=== PATIENT | female | born 1975 | race Caucasian/White ===

== ENCOUNTER → 2018-06-21 | Outpatient (CLI) | payer BC ==
[2005-08-27 07:47] VITALS: PULSE 94; TEMP 98.4
== END ==
LOC: MC.RAD 08:00
DX: Z12.31 Encounter for screening mammogram for malignant neoplasm of breast (principal)

== ENCOUNTER → 2019-08-29 | Outpatient (CLI) | payer BC ==
[2005-08-27 07:47] VITALS: PULSE 94; TEMP 98.4
== END ==
LOC: MC.RAD 07:20
DX: Z12.31 Encounter for screening mammogram for malignant neoplasm of breast (principal)

== ENCOUNTER → 2019-09-03 | Outpatient (CLI) | payer BC ==
[2005-08-27 07:47] VITALS: PULSE 94; TEMP 98.4
== END ==
LOC: MC.RAD 13:25
DX: R92.2 Inconclusive mammogram (principal)

== ENCOUNTER → 2020-09-04 | Outpatient (CLI) | payer BC ==
[2005-08-27 07:47] VITALS: PULSE 94; TEMP 98.4
== END ==
LOC: MC.RAD 07:37
DX: Z12.31 Encounter for screening mammogram for malignant neoplasm of breast (principal)

== ENCOUNTER → 2021-09-09 | Outpatient (CLI) | payer BC ==
[2005-08-27 07:47] VITALS: PULSE 94; TEMP 98.4
== END ==
LOC: MC.RAD 16:47
DX: Z12.31 Encounter for screening mammogram for malignant neoplasm of breast (principal)

== ENCOUNTER → 2023-12-06 | Outpatient (CLI) | payer BC ==
[2005-08-27 07:47] VITALS: PULSE 94; TEMP 98.4
== END ==
LOC: MC.RAD 08:05
DX: Z12.31 Encounter for screening mammogram for malignant neoplasm of breast (principal)